=== PATIENT | female | born 1980 | race Caucasian/White ===

== ENCOUNTER 2018-01-15 00:30 | Emergency (ER) | payer OTHER, MEDICAID ==
[~2018-01-15] VITALS: Ht 162.6 cm; Wt 66.0 kg
[~2018-01-15 00:30] MED LIST: DICL75 PO; DULO20 PO; RANI150 PO
[2018-01-15 00:36] VITALS: BP 130/71; PULSE 100; RESP 16; TEMP 97.5; O2SAT 100
[2018-01-15] MEDS ORDERED: KETOROLAC TROMETHAMINE 60 MG/2 ML (IM) VIAL IM ONE (01:30)
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
== END 2018-01-15 03:00 | disposition home or self-care (01) ==
LOC: PHED 00:30
DX: S60.00XA Contusion of unspecified finger without damage to nail, initial encounter (principal); S16.1XXA Strain of muscle, fascia and tendon at neck level, initial encounter; S39.012A Strain of muscle, fascia and tendon of lower back, initial encounter; Y92.410 Unspecified street and highway as the place of occurrence of the external cause; V49.49XA Driver injured in collision with other motor vehicles in traffic accident, initial encounter; Z72.0 Tobacco use
CPT/HCPCS: 72125; 72131; 73140; 84703; 96372; 99284; J1885